=== PATIENT | female | born 1935 | race Hispanic/Latino ===

== ENCOUNTER 2016-08-12 01:33 | Emergency (ER) | payer MEDICARE ==
[2016-08-12 01:33] VITALS: PULSE 89; BMI 30.8
--- NOTE | 2016-08-12 01:44 | C.PDOC ---
History Of Present Illness Patient presents to ED with complaints of rib pain from falling from bed, REPLENISHMENT SPECIALIST daughter found patient on the floor. Patient denies loss of conscious, visual changes, fever, chills, nausea/vomiting and diarrhea. Patient states she had chemotherapy this morning for ovarian cancer. PMHx hip fracture. Time Seen by Provider: 08/12/16 01:43 History Per: Patient History/Exam Limitations: no limitations Onset/Duration Of Symptoms: Days Current Symptoms Are (Timing): Still Present Severity: Moderate Pain Scale Rating Of: 4 Location Of Pain/Discomfort: Diffuse Radiation Of Pain To:: None Quality Of Discomfort: Aching Associated Symptoms: denies: Fever, Chills, Nausea, Vomiting, Diarrhea Exacerbating Factors: Movement Alleviating Factors: None Last Bowel Movement: Yesterday Recent travel outside of the [place]: No Additional History Per: Patient Abnormal Vaginal Bleeding: No Past Medical History Reviewed: Historical Data, Nursing Documentation, Vital Signs Vital Signs: Last Vital Signs Temp 97.9 F 08/12/16 01:44 Pulse 111 H 08/12/16 01:44 Resp 16 08/12/16 01:44 BP 150/100 H 08/12/16 01:44 Pulse Ox 97 08/12/16 04:13 - Medical History PMH: Arthritis, Atrial Fibrillation (Patient on Pradaxa ), Cardia Arrhythmia, CHF, COPD, Diabetes, Gall Bladder Disease, HTN, Hypercholesterolemia, Peripheral Edema Surgical History: Cholecystectomy - [facility] Procedures DRAINAGE OF PERITONEAL CAVITY, PERCUTANEOUS APPROACH, DIAGN (11/13/15) FLUOROSCOPY OF LEFT HEART USING OTHER CONTRAST (01/08/16) FLUOROSCOPY OF MULTIPLE CORONARY ARTERIES USING OTH CONTRAST (01/08/16) MEASURE OF CARDIAC SAMPL & PRESSURE, L HEART, PERC APPROACH (01/08/16) PERCUTAN LIVER ASPIRAT (06/24/14) REPOSITION R UP FEMUR WITH INTRAMED FIX, OPEN APPROACH (05/19/16) TRANSFUSE NONAUT RED BLOOD CELLS IN PERIPH VEIN, PERC (01/08/16) ULTRASONOGRAPHY OF ABDOMEN (11/13/15) VENOUS CATHETERIZATION NEC (06/24/14) Family History: States: No Known Family Hx - Social History Hx Tobacco Use: No Hx Alcohol Use: No Hx Substance Use: No - Immunization History Hx Tetanus Toxoid Vaccination: Yes Hx Influenza Vaccination: Yes Hx Pneumococcal Vaccination: Yes Review Of Systems Constitutional: Negative for: Fever, Chills Eyes: Negative for: Pain, Vision Change Gastrointestinal: Negative for: Nausea, Vomiting Musculoskeletal: Negative for: Back Pain Skin: Negative for: Rash, Lesions Physical Exam - Physical Exam Appears: Non-toxic, No Acute Distress Skin: Warm, Dry Head: Atraumatic Eye(s): bilateral: Normal Inspection Oral Mucosa: Dry Neck: Supple Chest: Symmetrical, Tenderness (left ribs) Cardiovascular: Rhythm Regular Respiratory: No Rales, No Rhonchi, No Wheezing Gastrointestinal/Abdominal: Soft, Tenderness (mild), No Distention Extremity: Normal ROM, Tenderness (mild left hip) Extremity: Bilateral: Normal Color And Temperature Neurological/Psych: Oriented x3, Normal Speech, Normal Cognition Gait: Unsteady ED Course And Treatment - Laboratory Results Result Diagrams: 08/12/16 02:39 08/12/16 02:39 O2 Sat by Pulse Oximetry: 97 (Room air ) Pulse Ox Interpretation: Normal - CT Scan/US Head Other Rad Studies (CT/US): Read By Radiologist CT/US Interpretation: IMPRESSION: - No acute findings seen within the brain. - See above for remaining findings. Abd/Pelvis WO Other Rad Studies (CT/US): Read By Radiologist CT/US Interpretation: IMPRESSION: - Moderate to large amount abdominal and pelvic free fluid. This appears mildly. complex/loculated, however, it is not hyperdense to suggest acute hemoperitoneum. - Omental infiltration and peritoneal thickening. Given the history of ovarian cancer, the. findings are suspicious for peritoneal/omental metastases. - 5.8 cm round cystic mass in the anterior abdomen, also seen on a prior CT, mildly enlarged. in size. This has a fluid/hematocrit level within it, suspicious for internal hemorrhage. It could. represent a resolving hematoma or a cystic neoplastic mass. - Findings suspicious for mild pulmonary vascular congestion. Recommend clinical. correlation. - Diffuse subcutaneous edema/anasarca. Progress Note: spoke with family about the ct results. will take the patient home Reevaluation Time: 04:55 Reassessment Condition: Improved Medical Decision Making Medical Decision Making: Upon provider reevaluation patient is feeling better, is medically stable, and requires no further treatment in the ED at this time. Patient will be discharged home . . Counseling was provided and all questions were answered regarding diagnosis and need for follow up with dr spicer. There is agreement to discharge plan. Return if symptoms persist or worsen. Disposition Counseled Patient/Family Regarding: Studies Performed, Diagnosis, Need For Followup - Disposition Referrals: Ghazal Knight MD [Staff Provider] - Disposition: HOME/ ROUTINE Disposition Time: 01:43 Condition: FAIR Additional Instructions: Please return if symptoms recur Instructions: Contusion in Adults (DC), Ovarian Cancer (GEN) - Clinical Impression Clinical Impression: Metastasis - PA / CORN CUTTER / Resident Statement MD/DO has reviewed & agrees with the documentation as recorded. - Scribe Statement The provider has reviewed the documentation as recorded by the Scribshila Elizabeth All medical record entries made by the Sharyn were at my direction and personally dictated by me. I have reviewed the chart and agree that the record accurately reflects my personal performance of the history, physical exam, medical decision making, and the department course for this patient. I have also personally directed, reviewed, and agree with the discharge instructions and disposition.
[2016-08-12 01:48] VITALS: BP 150/100; TEMP 97.9
[2016-08-12 02:44] LABS: BASO # 0.1 K/uL (0.0-0.2); BASO % 0.3 % (0.0-2.0); HEMATOCRIT 32.9 % (34.0-47.0); LYMPH # 0.4 K/uL (1.0-4.3); LYMPH % 1.9 % (20.0-40.0); MEAN CELL VOLUME 85.3 fL (81.0-99.0); MEAN CORPUSCULAR HEMOGLOBIN 27.1 pg (27.0-31.0); MEAN CORPUSCULAR HGB CONC 31.8 g/dL (33.0-37.0); MEAN PLATELET VOLUME 8.9 fL (7.2-11.7); MONO # 0.6 K/uL (0.0-0.8); MONO % 2.4 % (0.0-10.0); NRBC % 0.1 % (0.0-2.0); PLATELET COUNT 573 K/uL (130-400); RED CELL DISTRIBUTION WIDTH 16.8 % (11.5-14.5); WHITE BLOOD COUNT 23.2 K/uL (4.8-10.8)
[2016-08-12 02:51] LABS: POTASSIUM 4.4 mmol/L (3.6-5.2)
[2016-08-12 02:53] LABS: ALB/GLOB RATIO 0.8 (1.0-2.1); BILIRUBIN,TOTAL 1.2 mg/dL (0.2-1.3); TOTAL PROTEIN 6.4 g/dL (6.3-8.3)
[2016-08-12 02:54] LABS: CALCIUM 7.6 mg/dl (8.6-10.4)
[2016-08-12 02:55] LABS: RBC URINE 1 /hpf (0-3); URINE BACTERIA MANY (<OCC); URINE BILIRUBIN NEGATIVE (NEGATIVE); URINE BLOOD 1+ (NEGATIVE); URINE COLOR Amber (YELLOW); URINE GLUCOSE (UA) NORMAL (Normal); URINE KETONE NEGATIVE (NEGATIVE); URINE LEUKOCYTE ESTERASE NEG Leu/uL (Negative); URINE PROTEIN NEGATIVE (NEGATIVE); URINE UROBILINOGEN NORMAL mg/dL (0.2-1.0); WBC URINE 2 /hpf (0-5)
[2016-08-12 02:57] LABS: NEUTROPHIL 94 % (50-75); TOTAL CELLS COUNTED 100
--- NOTE | 2016-08-12 03:30 | CT ---
EXAM: CT Head Without Intravenous Contrast CLINICAL HISTORY: 81 years old, female; Pain; Headache; Headache not specified; Additional info: R/O bleed TECHNIQUE: Axial computed tomography images of the head/brain without intravenous contrast. This CT exam was performed using one or more of the following dose reduction techniques: automated exposure control, adjustment of the mA and/or kV according to patient size, and/or use of iterative reconstruction technique. EXAM DATE/TIME: 08/12/2016 1:56 AM COMPARISON: No relevant prior studies available. FINDINGS: BRAIN: Focal area of low density is seen in the right cerebellum, which has an appearance most compatible with an old/chronic lacunar infarct. Physiologic right-sided basal ganglia calcification noted. Areas of hypodensity seen in the white matter bilaterally, nonspecific in appearance, but most likely representing chronic small vessel ischemic changes, in a patient of this age. Diffuse, age-related cortical atrophy and ventriculomegaly. No significant acute abnormality identified. No acute hemorrhage seen within the brain. No acute extra-axial fluid collections visualized. No evidence of significant mass effect within the brain. VENTRICLES: See above. BONES/JOINTS: No acute fractures or other acute bony abnormality noted. SOFT TISSUES: No acute abnormality of the visualized soft tissues is seen. VASCULATURE: Atherosclerotic calcification. SINUSES: Visualized paranasal sinuses appear clear, except for a small mucus retention cyst in the left sphenoid sinus. MASTOID AIR CELLS: Mastoid air cells appear clear. IMPRESSION: - No acute findings seen within the brain. - See above for remaining findings.
[2016-08-12 03:35] LABS: INR 1.5
--- NOTE | 2016-08-12 04:00 | CT ---
EXAM: CT Chest Without Intravenous Contrast CT Abdomen and Pelvis Without Intravenous Contrast CLINICAL HISTORY: 81 years old, female; Pain; Abdominal pain; Generalized; Chest pain; Type not specified; Additional info: Fall, chest pain , HX of ovarian ca TECHNIQUE: Axial computed tomography images of the chest, abdomen and pelvis without intravenous contrast. This CT exam was performed using one or more of the following dose reduction techniques: automated exposure control, adjustment of the mA and/or kV according to patient size, and/or use of iterative reconstruction technique. This CT exam was performed using one or more of the following dose reduction techniques: automated exposure control, adjustment of the mA and/or kV according to patient size, and/or use of iterative reconstruction technique. Coronal and sagittal reformatted images were created and reviewed. EXAM DATE/TIME: 08/12/2016 1:55 AM COMPARISON: Prior CT abdomen and pelvis of 06/17/2016 FINDINGS: CHEST: LUNGS: Findings suspicious for mild pulmonary vascular congestion. There is bilateral smooth interlobular septal thickening, mainly at the lung periphery, and there is subtle, bilateral diffuse groundglass consolidation. PLEURAL SPACE: No pneumothorax or significant pleural effusions seen. HEART: Heart appears moderately enlarged. Small pericardial effusion. THYROID: Right lobe of the thyroid gland is enlarged and heterogeneous in appearance. No definite focal nodules are seen. ABDOMEN: LIVER: Liver has a mildly nodular contour, suspicious for cirrhotic change. No evidence of liver laceration, allowing for unenhanced technique. GALLBLADDER AND BILE DUCTS: Cholecystectomy clips. PANCREAS: No evidence of peripancreatic fluid. SPLEEN: No evidence of splenic laceration, allowing for unenhanced technique. ADRENALS: No evidence of adrenal hemorrhage/hematoma. KIDNEYS AND URETERS: No evidence of perinephric hemorrhage. STOMACH AND BOWEL: Colonic diverticulosis, with no evidence of acute diverticulitis. No acute abnormality of the stomach or duodenum identified. No evidence of small bowel obstruction. APPENDIX: Appendix is seen, and is within normal limits in appearance. PELVIS: BLADDER: No acute abnormality of the bladder identified. REPRODUCTIVE:No acute abnormality of the reproductive organs is seen. No acute abnormality of the uterus identified. No evidence of large adnexal masses. CHEST, ABDOMEN and PELVIS: INTRAPERITONEAL SPACE: Abdominal and pelvic free fluid, moderate to large amount, a new finding. This appears complex/loculated but it does not appear hyperdense to suggest hemoperitoneum. There is abnormal, diffuse infiltrative soft tissue in the omentum, as well as mild diffuse peritoneal thickening. Again seen in the anterior abdomen, localized to the omentum, is a round, cystic mass measuring 5.8 cm, mildly enlarged in size compared to the prior exam. This is complex, demonstrating a fluid/hematocrit level within it. There is adjacent omental infiltration. No associated air. No evidence of free air. RETROPERITONEAL SPACE: No evidence of retroperitoneal hemorrhage. BONES/JOINTS: Metallic hardware in the right hip. Bony structures appear demineralized. No acute fractures are seen. SOFT TISSUES: Diffuse subcutaneous edema/anasarca. VASCULATURE: Diffuse atherosclerotic calcification of the aorta. Exam is nondiagnostic for aortic dissection and pulmonary emboli, secondary to unenhanced technique. No evidence of periaortic hemorrhage. LYMPH NODES: No evidence of diffuse lymphadenopathy. TUBES, LINES AND DEVICES: Mediport catheter in place, which terminates in the SVC. IMPRESSION: - Moderate to large amount abdominal and pelvic free fluid. This appears mildly complex/loculated, however, it is not hyperdense to suggest acute hemoperitoneum. - Omental infiltration and peritoneal thickening. Given the history of ovarian cancer, the findings are suspicious for peritoneal/omental metastases. - 5.8 cm round cystic mass in the anterior abdomen, also seen on a prior CT, mildly enlarged in size. This has a fluid/hematocrit level within it, suspicious for internal hemorrhage. It could represent a resolving hematoma or a cystic neoplastic mass. - Findings suspicious for mild pulmonary vascular congestion. Recommend clinical correlation. - Diffuse subcutaneous edema/anasarca. - Cardiomegaly, with a small pericardial effusion. - See above for remaining findings.
[2016-08-12 05:14] VITALS: PULSE 83; RESP 15; O2SAT 95
== END 2016-08-12 05:14 | disposition home or self-care (01) ==
LOC: C.ER 01:33
DX: C79.9 Secondary malignant neoplasm of unspecified site (principal); C56.9 Malignant neoplasm of unspecified ovary; I11.0 Hypertensive heart disease with heart failure; I50.9 Heart failure, unspecified; E11.9 Type 2 diabetes mellitus without complications; E78.00 Pure hypercholesterolemia, unspecified
CPT/HCPCS: 70450; 71250; 74176; 80053; 81001; 85025; 85610; 85730; 96374; 99284; J1885

== ENCOUNTER 2016-08-19 11:45 | Day surgery (SDC) | payer MEDICARE ==
[2016-08-18 14:02] VITALS: BMI 24.7
[2016-08-19 12:44] VITALS: RESP 20; TEMP 97.1
--- NOTE | 2016-08-19 13:36 | CP.SDSHP ---
Same Day Surgery H & P - History Proposed Procedure: US guided paracentesis Pre-Op Diagnosis: Ascites - Allergies Allergies: Allergies No Known Allergies Allergy (Verified 08/12/16 01:38) - Physical Exam Vital Signs: Vital Signs 08/19/16 12:24 Temperature 97.1 F L Pulse Rate 112 H Respiratory 20 Rate Blood Pressure 147/90 O2 Sat by Pulse 94 L Oximetry Mental Status: Alert & Oriented x3 Neuro: WNL Heart: WNL - Impression Impression: Pt with moderate ascites. Plan US guided paracentesis. Pt. Evaluated Today:Candidate for Anesthesia & Procedure: No Short Stay Discharge - Short Stay Discharge Admitting Diagnosis/Reason for Visit: MALIGNANT NEOPLASM OF UNSPECIFIED OVARY Disposition: HOME/ ROUTINE
--- NOTE | 2016-08-19 13:37 | PCM.SURG1 ---
Surgeon's Initial Post Op Note - Surgeon's Notes Surgeon: Justin Lopez MD Cigarette Tester: NONE Type of Anesthesia: Local Pre-Operative Diagnosis: Ascites Operative Findings: US showed a moderate amount of fluid. Post-Operative Diagnosis: Ascites Operation Performed: US guided paracentesis. Specimen/Specimens Removed: 2 liters of straw colored fluid Estimated Blood Loss: EBL {In ML}: 0 Blood Products Given: N/A Drains Used: No Drains Post-Op Condition: Fair Date of Surgery/Procedure: 08/19/16 Time of Surgery/Procedure: 13:25
[2016-08-19 14:21] VITALS: O2SAT 98
[2016-08-19 14:23] VITALS: BP 126/74; PULSE 126
--- NOTE | 2016-09-05 11:52 | US ---
Date of Procedure: 08/19/2016 PROCEDURE: Ultrasound-guided paracentesis, CPT 40384 Medications: 1% Lidocaine HISTORY: Ascites, abdominal pain, TECHNIQUE: Following informed consent , the patient was placed supine on the stretcher and the site was marked. A limited abdominal ultrasound was performed that showed a moderate amount of intra-abdominal fluid. Procedural time out was called and the Pt's abdomen was marked and prepped and draped in the usual sterile fashion. Ultrasound-guided large volume paracentesis performed. A total of 2.8 liters of straw colored fluid was removed without complication. IMPRESSION: Ultrasound-guided large volume paracentesis.
== END 2016-08-19 14:30 | disposition home or self-care (01) ==
LOC: C.SPRAD 11:45
PROVIDERS: ATTEND Radiology Vascular & Interventional Radiology
DX: C56.9 Malignant neoplasm of unspecified ovary (principal); R18.8 Other ascites

== ENCOUNTER 2016-09-05 17:45 | Inpatient (IN) | payer MEDICARE ==
[2016-09-05 17:50] VITALS: BMI 25.8
--- NOTE | 2016-09-05 17:57 | C.PDOC ---
Chief Complaint (Nursing): Weakness/Neurological Deficit Past Medical History - [facility] Procedures CORONAR ARTERIOGR-2 CATH (03/24/06) LEFT HEART CARDIAC CATH (03/24/06) LT HEART ANGIOCARDIOGRAM (03/24/06)
[2016-09-05] MEDS ORDERED: Sodium Chloride 0.9% 1,000 ML IV ONE (18:31)
[2016-09-05 18:56] LABS: BASO # 0.1 K/uL (0.0-0.2); BASO % 0.4 % (0.0-2.0); HEMATOCRIT 35.8 % (34.0-47.0); LYMPH # 0.6 K/uL (1.0-4.3); LYMPH % 2.5 % (20.0-40.0); MEAN CELL VOLUME 90.4 fL (81.0-99.0); MEAN CORPUSCULAR HEMOGLOBIN 28.8 pg (27.0-31.0); MEAN CORPUSCULAR HGB CONC 31.9 g/dL (33.0-37.0); MEAN PLATELET VOLUME 10.3 fL (7.2-11.7); MONO # 1.2 K/uL (0.0-0.8); MONO % 5.4 % (0.0-10.0); NRBC % 0.1 % (0.0-2.0); PLATELET COUNT 192 K/uL (130-400); RED CELL DISTRIBUTION WIDTH 26.4 % (11.5-14.5)
[2016-09-05 19:43] LABS: POTASSIUM 4.6 mmol/L (3.6-5.2)
[2016-09-05 19:45] LABS: BILIRUBIN,TOTAL 1.4 mg/dL (0.2-1.3)
[2016-09-05 19:46] LABS: ALB/GLOB RATIO 1.1 (1.0-2.1); CALCIUM 7.9 mg/dl (8.6-10.4); TOTAL PROTEIN 5.8 g/dL (6.3-8.3)
--- NOTE | 2016-09-05 20:03 | C.PDOC ---
History Of Present Illness 81 y/o female brought in by ambulance for decreased mental status over the last 5 days. Patient was reportedly started on home IV fluids and Cipro 5 days ago for supposed UTI. Patient is reportedly less awake, alert, and oriented today. Transiently known to be in rapid afib in 130s - 160s, resolved with Cardizem. Denies fever, chills, nausea, vomiting, chest pain, or SOB. Time Seen by Provider: 09/05/16 18:21 Chief Complaint (Nursing): Weakness/Neurological Deficit History Per: EMS History/Exam Limitations: None Onset/Duration Of Symptoms: Days Current Symptoms Are (Timing): Still Present Usual Baseline: Alert Oriented Exacerbating Factor(s): Unknown Recent travel outside of the [place]: No Past Medical History Reviewed: Historical Data, Nursing Documentation, Vital Signs Vital Signs: Last Vital Signs Temp 97.1 F L 09/05/16 17:50 Pulse 123 H 09/05/16 19:30 Resp 16 09/05/16 19:30 BP 121/73 09/05/16 19:30 Pulse Ox 96 09/05/16 22:48 - Medical History PMH: HTN - [facility] Procedures CORONAR ARTERIOGR-2 CATH (03/24/06) LEFT HEART CARDIAC CATH (03/24/06) LT HEART ANGIOCARDIOGRAM (03/24/06) Family History: States: Unknown Family Hx - Social History Hx Alcohol Use: No Hx Substance Use: No Review Of Systems Except As Marked, All Systems Reviewed And Found Negative. Constitutional: Negative for: Fever, Chills Cardiovascular: Negative for: Chest Pain, Palpitations Respiratory: Negative for: Cough, Shortness of Breath Gastrointestinal: Negative for: Nausea, Vomiting Skin: Negative for: Rash Neurological: Positive for: Altered Mental Status Physical Exam - Physical Exam Appears: Non-toxic, No Acute Distress, Other (somnolent) Skin: Warm, Dry, Pale Head: Atraumatic, Normacephalic Chest: Symmetrical Cardiovascular: Rhythm Regular (irregularly regular ) Respiratory: Normal Breath Sounds, No Rales, No Rhonchi, No Wheezing Gastrointestinal/Abdominal: Soft, No Tenderness, No Guarding, No Rebound Back: Normal Inspection Extremity: Normal ROM, Other (4/4 pitting edema, bilateral lower extremities) Neurological/Psych: Other (not answering questions, somnolent ) ED Course And Treatment - Laboratory Results Result Diagrams: 09/05/16 18:51 09/05/16 19:33 Lab Interpretation: Abnormal (UA neg, trop 0.17, bnp 28,000) ECG: Interpreted By Me ECG Rhythm: Atrial Fibrillation ECG Interpretation: No Changes From Prior, Abnormal Rate From EC O2 Sat by Pulse Oximetry: 96 (RA) Pulse Ox Interpretation: Normal - Radiology CXR: Interpreted by Me CXR Interpretation: Yes: Other (+ mild/mod CHF) Progress Note: CT Head, EKG, CxR, bloodwork and IVFs ordered, dig IV Reevaluation Time: 22:46 Reassessment Condition: Improved - Physician Consult Information Outcome Of Conversation: 2100: d/w Dr. Vane Busby- ok to Tele Obs. 2144: d/w Dr. Driver- ICU- ok to Tele Obs if rate controlled with dig and IVF's Critical Care Time - Critical Care Note Total Time (in mins): 90 Documented critical care: time excludes all time spent performing seperately billable procedures. Medical Decision Making Medical Decision Makin: d/w ICU, Dr. Driver recommends start Dig and gentle fluid bolus Leukocytosis more likely related to pt's recent Chemo 2 wks ago for Ovarian CA Belly benign- not re-imaged despite leukocytosis Broad spectrum ABX for ? underlying infection/UTI considering poor effect on Cipro IV x 5 days. DNR Status should be better defined. Disposition Doctor Will See Patient In The: Hospital Counseled Patient/Family Regarding: Studies Performed, Diagnosis - Disposition Disposition: HOSPITALIZED Disposition Time: 22:13 Condition: FAIR Instructions: Weakness (ED) - Clinical Impression Clinical Impression: Weakness, CHF (congestive heart failure), Troponin I above reference range, Rapid atrial fibrillation - Scribe Statement The provider has reviewed the documentation as recorded by the Sharyn Rdz Provider Scribe Attestation: All medical record entries made by the Sharyn were at my direction and personally dictated by me. I have reviewed the chart and agree that the record accurately reflects my personal performance of the history, physical exam, medical decision making, and the department course for this patient. I have also personally directed, reviewed, and agree with the discharge instructions and disposition.
[2016-09-05 20:10] LABS: TROPONIN I 0.17 ng/mL (0.00-0.120)
[2016-09-05 20:12] LABS: VENOUS BLOOD GAS BASE EXCESS -3.1 mmol/L (0.0-2.0); VENOUS BLOOD GAS PCO2 45 mmHg (40-60); VENOUS BLOOD PH 7.32 (7.32-7.43)
[2016-09-05 20:23] LABS: INR 2.2
--- NOTE | 2016-09-05 21:46 | CT ---
EXAM: CT Head Without Intravenous Contrast CLINICAL HISTORY: 81 years old, female; Signs and symptoms and condition or disease; Other: Ovarian cancer; Altered mental status/memory loss; Confusion or disorientation; Additional info: Change ms, ovarian ca TECHNIQUE: Axial computed tomography images of the head/brain without intravenous contrast. This CT exam was performed using one or more of the following dose reduction techniques: automated exposure control, adjustment of the mA and/or kV according to patient size, and/or use of iterative reconstruction technique. COMPARISON: No relevant prior studies available. FINDINGS: Brain: [id number] atrophy. No intracranial hemorrhage. No mass. Minimal decreased attenuation within periventricular white matter. No definite edema. Ventricles: No hydrocephalus. Bones/joints: No acute fracture. Soft tissues: Unremarkable. Vasculature: Few foci of air about cavernous sinus, nonspecific but possibly iatrogenic. Sinuses: No acute sinusitis. Mastoid air cells: No mastoid effusion. Orbits: Unremarkable as visualized. IMPRESSION: 1. Nonspecific white matter changes. Acute infarction may be CT occult within first 24 hours. If a focal deficit persists, consider followup CT or MRI for further evaluation. 2. Incidental/non-acute findings are described above.
[2016-09-05] MEDS ORDERED: Digoxin 500 mcg/2ml (0.5 mg/2ml) Inj IVP ONE (22:08)
[2016-09-05] MEDS ORDERED: cefTRIAXone IV 1 gm in Dextros 50 ML IV ONE (22:09)
[2016-09-05] MEDS ORDERED: Sodium Chloride 0.9% 500 ML IV ONE ×2 (22:10→22:48)
[2016-09-05 22:20] LABS: RBC URINE 1 /hpf (0-3); URINE BACTERIA RARE (<OCC); URINE BILIRUBIN NEGATIVE (NEGATIVE); URINE BLOOD NEGATIVE (NEGATIVE); URINE COLOR Yellow (YELLOW); URINE GLUCOSE (UA) NORMAL (Normal); URINE KETONE NEGATIVE (NEGATIVE); URINE LEUKOCYTE ESTERASE NEG Leu/uL (Negative); URINE PROTEIN NEGATIVE (NEGATIVE); URINE UROBILINOGEN NORMAL mg/dL (0.2-1.0); WBC URINE 1 /hpf (0-5)
--- NOTE | 2016-09-05 22:35 | CP.PCM.CON ---
History of Present Illness - History of Present Illness History of Present Illness: CCM 81 yo female with hx Uterine Ca on chemo until 2 weeks ago / A-fib /CHF /HTN / Recent UTI on Cipro brought b/o altered ms x 5 days per family. Pt has been weak. Still taking some PO. Treated with cardizem for rapid A-fib by EMS. Pt denied complaint to me. No pain /sob /n /v /d /fever /cough /urinary sx. Family reports prior cath with no coronary obstruction. ROS- as noted All- NKDASocial- no tob/ etoh/ drugs Meds- reviwed FH-Unknown PE T-97.1 P-123 R-16 BP121/73 Awake, responsive, answers appropriatelynad Neck-supple Lungs- bilat bs heart-irreg irreg Abd-bs+, soft, nontender Ext- bipedal edema Labs, EKG, [id number] A&P Encephalopathy- ?multifactorial-improving [facility] A-fib- Chronic Hx UTI CMP Leukocytosis Uterine Ca Hx HTN Rate control with dig check UA/ cultures Ab pending cultures cautious hydration f/u CE Maintain optimal lytes cont AC for A-fib telemetry monitoring re-consult prn address advance directives d/w ED staff Past Patient History - Past Social History Smoking Status: Unknown If Ever Smoked - CARDIAC Hx Hypertension: Yes - HEMATOLOGICAL/ONCOLOGICAL Hx Cancer: Yes (ovarian ca) - GENITOURINARY/GYNECOLOGICAL Hx Urinary Tract Infection: Yes - PSYCHIATRIC Hx Substance Use: No - ANESTHESIA Hx Anesthesia: Yes Meds Allergies/Adverse Reactions: Allergies Allergy/AdvReac Type Severity Reaction Status Date / Time No Known Allergies Allergy Unverified 09/05/16 17:50 - Medications Medications: Current Medications Ceftriaxone Sodium (Rocephin Iv 1 Gm Duplex) 50 mls @ 200 mls/hr IV ONCE ONE Stop: 09/05/16 22:23 Sodium Chloride (Sodium Chloride 0.9%) 500 mls @ 250 mls/hr IV .Q2H ONE Stop: 09/06/16 00:09 Results - Vital Signs Recent Vital Signs: Last Vital Signs Temp 97.1 F L 09/05/16 17:50 Pulse 123 H 09/05/16 19:30 Resp 16 09/05/16 19:30 BP 121/73 09/05/16 19:30 Pulse Ox 96 09/05/16 22:14 - Labs Result Diagrams: 09/05/16 18:51 09/05/16 19:33 Labs: Laboratory Results - last 24 hr 09/05/16 09/05/16 09/05/16 18:51 18:51 19:33 WBC 22.0 H RBC 3.96 Hgb 11.4 Hct 35.8 MCV 90.4 MCH 28.8 MCHC 31.9 L RDW 26.4 H Plt Count 192 MPV 10.3 Neut % (Auto) 91.7 H Lymph % (Auto) 2.5 L [place] % (Auto) 5.4 Eos % (Auto) 0.0 Baso % (Auto) 0.4 Neut # 20.2 H Lymph # 0.6 L [place] # 1.2 H Eos # 0.0 Baso # 0.1 PT INR APTT pO2 VBG pH VBG pCO2 VBG HCO3 VBG Total CO2 VBG O2 Sat (Calc) VBG Base Excess VBG Potassium Glucose Lactate Sodium 132 Potassium 4.6 Chloride 98 Carbon Dioxide 22 Anion Gap 17 BUN 67 H Creatinine 1.6 H Est GFR ( Amer) 37 Est GFR (Non-Af Amer) 31 Random Glucose 117 H Hemoglobin A1c 6.6 H Calcium 7.9 L Total Bilirubin 1.4 H AST 286 H ALT 445 H Alkaline Phosphatase 49 Troponin I 0.1700 H* NT-Pro-B Natriuret Pep 29416 H Total Protein 5.8 L Albumin 3.0 L Globulin 2.8 Albumin/Globulin Ratio 1.1 Triglycerides 120 Cholesterol 123 LDL Cholesterol Direct 54 HDL Cholesterol 34 Venous Blood Potassium 09/05/16 09/05/16 20:04 20:08 WBC RBC Hgb Hct MCV MCH MCHC RDW Plt Count MPV Neut % (Auto) Lymph % (Auto) [place] % (Auto) Eos % (Auto) Baso % (Auto) Neut # Lymph # [place] # Eos # Baso # PT 25.7 H INR 2.2 APTT 56 H pO2 31 VBG pH 7.32 VBG pCO2 45 VBG HCO3 21.3 VBG Total CO2 24.6 VBG O2 Sat (Calc) 51.3 VBG Base Excess -3.1 L VBG Potassium 4.7 Glucose 122 H Lactate 2.1 Sodium 137.0 Potassium Chloride 105.0 Carbon Dioxide Anion Gap BUN Creatinine Est GFR ( Amer) Est GFR (Non-Af Amer) Random Glucose Hemoglobin A1c Calcium Total Bilirubin AST ALT Alkaline Phosphatase Troponin I NT-Pro-B Natriuret Pep Total Protein Albumin Globulin Albumin/Globulin Ratio Triglycerides Cholesterol LDL Cholesterol Direct HDL Cholesterol Venous Blood Potassium 4.7 Assessment & Plan (1) Rapid atrial fibrillation Status: Acute (2) CHF (congestive heart failure) Status: Chronic (3) Troponin I above reference range Status: Acute (4) UTI (urinary tract infection) Status: Suspected (5) Uterine cancer Status: Chronic
[2016-09-05] MEDS ORDERED: cefTRIAXone IV 1 gm in Dextros 50 ML IVPB ONE (22:48)
[2016-09-05] MEDS ORDERED: Digoxin 500 mcg/2ml (0.5 mg/2ml) Inj ONE (22:48)
[2016-09-05 23:41] LABS: NEUTROPHIL 88 % (50-75); TOTAL CELLS COUNTED 100
[2016-09-05 23:42] LABS: LARGE PLATELETS PRESENT; SMUDGE CELLS PRESENT; SPHEROCYTES SLIGHT
[2016-09-06] MEDS ORDERED: Digoxin 500 mcg/2ml (0.5 mg/2ml) Inj IVP STA (00:06)
[2016-09-06] MEDS ORDERED: Digoxin 500 mcg/2ml (0.5 mg/2ml) Inj ONE (00:18)
[2016-09-06 00:21] VITALS: PULSE 153
[2016-09-06] MEDS ORDERED: Dextrose 5%/0.45% NS 1,000 ML IV ONE (01:13)
[2016-09-06] MEDS: Dextrose 5%/0.45% NS 1,000 ML IV SCH (01:22)
--- NOTE | 2016-09-06 08:41 | RAD ---
HISTORY: change MS COMPARISON: No prior. FINDINGS: LUNGS: Left chest wall port with tip extending to the confluence of the right brachiocephalic/ SVC junction. Mild venous congestion. Trace right pleural effusion. PLEURA: As above. CARDIOVASCULAR: Cardiomegaly. Calcification at the aortic knob. OSSEOUS STRUCTURES: No significant abnormalities. VISUALIZED UPPER ABDOMEN: Normal. OTHER FINDINGS: None. IMPRESSION: Left chest wall port with tip extending to the confluence of the right brachiocephalic/ SVC junction. Mild venous congestion. Trace right pleural effusion.
[2016-09-06] MEDS: Oxycodone/Acetaminophen 5/325 mg Tab PO PRN ×4 (08:59→18:59)
[2016-09-06 09:20] LABS: BASO % 0.2 % (0.0-2.0); HEMATOCRIT 35.1 % (34.0-47.0); LYMPH # 0.6 K/uL (1.0-4.3); LYMPH % 2.9 % (20.0-40.0); MEAN CELL VOLUME 90.5 fL (81.0-99.0); MEAN CORPUSCULAR HEMOGLOBIN 28.4 pg (27.0-31.0); MEAN CORPUSCULAR HGB CONC 31.3 g/dL (33.0-37.0); MEAN PLATELET VOLUME 9.9 fL (7.2-11.7); MONO # 1.2 K/uL (0.0-0.8); MONO % 5.7 % (0.0-10.0); NRBC % 0.1 % (0.0-2.0); PLATELET COUNT 170 K/uL (130-400); RED CELL DISTRIBUTION WIDTH 25.6 % (11.5-14.5); WHITE BLOOD COUNT 21.5 K/uL (4.8-10.8)
[2016-09-06 09:35] LABS: POTASSIUM 4.2 mmol/L (3.6-5.2)
[2016-09-06 09:37] LABS: ALB/GLOB RATIO 0.9 (1.0-2.1); BILIRUBIN,TOTAL 1.2 mg/dL (0.2-1.3); CALCIUM 7.7 mg/dl (8.6-10.4); TOTAL PROTEIN 5.7 g/dL (6.3-8.3)
[2016-09-06 09:53] LABS: NEUTROPHIL 94 % (50-75); TOTAL CELLS COUNTED 100
--- NOTE | 2016-09-06 10:23 | CARD ---
APPROVED REPORT EKG Measurement Heart [id number] <Conclusion> Atrial fibrillation with rapid ventricular response Left axis deviation ST & T wave abnormality, consider inferolateral ischemia Abnormal ECG
--- NOTE | 2016-09-06 11:59 | CP.PCM.HP ---
History of Present Illness - History of Present Illness History of Present Illness: This is an 81 y/o female with kown history of ovarian Ca, HTN, diabetes mellitus and paroxysmal atrial fibrillation who was brought to the ER by the family because of severe weakness, suspected low grade fever, confusion and disorientation. According to the daughter, the patient just gradually deteriorated this past week and refused to eat and became uncooperative. She was noted to sleep most of the time, refusing to eat and drink within the last few days and became very weak, confused and disoriented. She has history of on and off UTI. She was given Cipro recently which reportedly did not help her condition hence she was brought to the ER. In the ER she was found to be in atrial fib with rapid ventricular response, associated with markedly elevated WBC count, significant azotemia, abnormal LFT' s, confusion and disorientation. Present on Admission - Present on Admission Any Indicators Present on Admission: No Review of Systems - Review of Systems Systems not reviewed;Unavailable: Altered Mental Status, Uncooperative - Constitutional Constitutional: Anorexia, Daytime Sleepiness, Lethargy, Weight Loss, Weakness - EENT Eyes: As Per HPI Ears: As Per HPI Nose/Mouth/Throat: As Per HPI - Cardiovascular Cardiovascular: Dyspnea on Exertion, Irregular Heart Rhythm, Rapid Heart Rate, Syncope - Respiratory Respiratory: Dyspnea on Exertion - Gastrointestinal Gastrointestinal: Abdominal Pain, Constipation - Musculoskeletal Musculoskeletal: Back Pain, Tingling - Neurological Neurological: Confusion, Lack of Coordination, Syncope, Weakness Past Patient History - Infectious Disease Hx of Infectious Diseases: MRSA, VRE - Past Medical History & Family History Past Medical History?: Yes - Past Social History Smoking Status: Never Smoked Chewing Tobacco Use: No Cigar Use: No Alcohol: None Drugs: Denies Home Situation {Lives}: With Family - CARDIAC Hx Cardiac Disorders: Yes Hx Atrial Fibrillation: Yes (paroxysmal) Hx Hypertension: Yes Hx Peripheral Edema: Yes - PULMONARY Hx Respiratory Disorders: No - NEUROLOGICAL Hx Neurological Disorder: No Hx Syncope: Yes - ENDOCRINE/METABOLIC Hx Diabetes Mellitus Type 2: Yes - HEMATOLOGICAL/ONCOLOGICAL Hx Cancer: Yes (ovarian ca) - MUSCULOSKELETAL/RHEUMATOLOGICAL Hx Falls: Yes - GASTROINTESTINAL Hx Gastrointestinal Disorders: Yes Other/Comment: History of ascites. S/P abdominal paracentesis a fe weeks ago and obtained about 2 L of fluid. - GENITOURINARY/GYNECOLOGICAL Hx Genitourinary Disorders: Yes Hx Ovarian Cancer: Yes Hx Urinary Tract Infection: Yes - PSYCHIATRIC Hx Substance Use: No - SURGICAL HISTORY Hx Surgeries: Yes Hx Cardiac Catheterization: Yes (Non-obstructive CAD, Good LV function) - ANESTHESIA Hx Anesthesia: Yes Hx Anesthesia Reactions: No Hx Malignant Hyperthermia: No Has any member of the family had a problem w/ anesthesia?: No Meds Allergies/Adverse Reactions: Allergies Allergy/AdvReac Type Severity Reaction Status Date / Time No Known Allergies Allergy Unverified 09/05/16 17:50 Physical Exam - Constitutional Appears: No Acute Distress, Confused, Chronically Ill - Eye Exam Eye Exam: Normal appearance - ENT Exam ENT Exam: Mucous Membranes Moist - Neck Exam Neck exam: Positive for: Normal Inspection - Respiratory Exam Respiratory Exam: Clear to Auscultation Bilateral, NORMAL BREATHING PATTERN - Cardiovascular Exam Cardiovascular Exam: Tachycardia, Irregular Rhythm, +S1, +S2 - GI/Abdominal Exam GI & Abdominal Exam: Normal Bowel Sounds, Soft - Rectal Exam Rectal Exam: Deferred - Extremities Exam Extremities exam: Positive for: normal inspection - Back Exam Back exam: NORMAL INSPECTION - Neurological Exam Neurological exam: Alert, CN II-XII Intact, Oriented x3 - Expanded Psychiatric Exam Expanded Focused psych exam: Restlessness - Skin Skin Exam: Dry, Intact, Normal Color, Warm Results - Vital Signs Recent Vital Signs: Last Vital Signs Temp 97.6 F 09/06/16 02:30 Pulse 105 H 09/06/16 06:00 Resp 20 09/06/16 02:30 BP 161/86 H 09/06/16 06:00 Pulse Ox 99 09/06/16 02:30 - Labs Result Diagrams: 09/07/16 06:25 09/07/16 06:25 Labs: Laboratory Results - last 24 hr 09/06/16 09/06/16 09/06/16 02:48 06:34 09:15 WBC 21.5 H RBC 3.87 Hgb 11.0 Hct 35.1 MCV 90.5 MCH 28.4 MCHC 31.3 L RDW 25.6 H Plt Count 170 MPV 9.9 Neut % (Auto) 91.2 H Lymph % (Auto) 2.9 L [place] % (Auto) 5.7 Eos % (Auto) 0.0 Baso % (Auto) 0.2 Neut # 19.6 H Lymph # 0.6 L [place] # 1.2 H Eos # 0.0 Baso # 0.0 Neutrophils % (Manual) 94 H Lymphocytes % (Manual) 1 L Monocytes % (Manual) 5 Platelet Estimate Normal Hypochromasia (manual) Slight Poikilocytosis (manual Slight Anisocytosis (manual) Slight Microcytosis (manual) Slight Macrocytosis (manual) Slight Tear Drop Cells Slight Ovalocytes Slight [place] Cells Slight Sodium Potassium Chloride Carbon Dioxide Anion Gap BUN Creatinine Est GFR ( Amer) Est GFR (Non-Af Amer) POC Glucose (mg/dL) 119 H Random Glucose Calcium Total Bilirubin AST ALT Alkaline Phosphatase Total Creatine Kinase 26 L CK-MB (Mass) 2.07 Troponin I, Quant 0.1610 H* Total Protein Albumin Globulin Albumin/Globulin Ratio 09/06/16 09/06/16 09/06/16 09:15 09:15 11:14 WBC RBC Hgb Hct MCV MCH MCHC RDW Plt Count MPV Neut % (Auto) Lymph % (Auto) [place] % (Auto) Eos % (Auto) Baso % (Auto) Neut # Lymph # [place] # Eos # Baso # Neutrophils % (Manual) Lymphocytes % (Manual) Monocytes % (Manual) Platelet Estimate Hypochromasia (manual) Poikilocytosis (manual Anisocytosis (manual) Microcytosis (manual) Macrocytosis (manual) Tear Drop Cells Ovalocytes [place] Cells Sodium 133 Potassium 4.2 Chloride 100 Carbon Dioxide 24 Anion Gap 13 BUN 63 H Creatinine 1.3 H Est GFR ( Amer) 48 Est GFR (Non-Af Amer) 39 POC Glucose (mg/dL) 119 H Random Glucose 108 H Calcium 7.7 L Total Bilirubin 1.2 AST 161 H D ALT 366 H Alkaline Phosphatase 57 Total Creatine Kinase 28 L CK-MB (Mass) 2.66 Troponin I, Quant 0.1940 H* Total Protein 5.7 L Albumin 2.7 L Globulin 2.9 Albumin/Globulin Ratio 0.9 L Assessment & Plan (1) Rapid atrial fibrillation Status: Acute Priority: High Comment: On Cardizem drip and started on po Cardizem to hopefullymantain rate (2) Acute metabolic encephalopathy Status: Acute Priority: High Comment: Patient confused and disoriented. CT Scan of the Head noted. (3) Elevated WBC count Status: Acute Priority: High Comment: r/o sepsis. Patient has history of frequent UTI and was recently given Cipro but reportedly did not seem to help her condition. Will get ID consultation. (4) Acute prerenal azotemia Status: Acute Priority: High Comment: patient on cautious hydration and monitoring of I/O and BUN/creat (5) Ovarian cancer Status: Chronic Priority: High Comment: Will get Oncology consultation Decision To Admit - Pt Status Changed To: Hospital Disposition Of: Inpatient - Admit Certification Admit to Inpatient:: After my assessment, the patient will require hospitalization for at least two midnights. This is because of the severity of symptoms shown, intensity of services needed, and/or the medical risk in this patient being treated as an outpatient. - InPatient: Physician Admission Certification:: After my assessment, the patient will require hospitalization for at least two midnights. This is because of the severity of symptoms shown, intensity of services needed, and/or the medical risk in this patient being treated as an outpatient - . Bed Request Type: Telemetry Admitting Physician: Ghazal Knight
[2016-09-06] MEDS: diltiaZEM 240 mg/24 Hours CD Cap PO SCH (14:09)
[2016-09-07 06:37] LABS: BASO % 0.1 % (0.0-2.0); EOS % 0.2 % (0.0-4.0); HEMATOCRIT 33.3 % (34.0-47.0); LYMPH # 0.3 K/uL (1.0-4.3); LYMPH % 1.9 % (20.0-40.0); MEAN CELL VOLUME 90.7 fL (81.0-99.0); MEAN CORPUSCULAR HEMOGLOBIN 28.5 pg (27.0-31.0); MEAN CORPUSCULAR HGB CONC 31.4 g/dL (33.0-37.0); MEAN PLATELET VOLUME 9.9 fL (7.2-11.7); MONO # 1.1 K/uL (0.0-0.8); MONO % 6.1 % (0.0-10.0); NRBC % 0.1 % (0.0-2.0); PLATELET COUNT 159 K/uL (130-400); RED CELL DISTRIBUTION WIDTH 26.9 % (11.5-14.5); WHITE BLOOD COUNT 17.3 K/uL (4.8-10.8)
[2016-09-07 07:18] LABS: POTASSIUM 3.7 mmol/L (3.6-5.2)
[2016-09-07 07:20] LABS: ALB/GLOB RATIO 0.8 (1.0-2.1); TOTAL PROTEIN 4.9 g/dL (6.3-8.3)
[2016-09-07 07:21] LABS: CALCIUM 7.9 mg/dl (8.6-10.4)
[2016-09-07 08:32] LABS: NEUTROPHIL 90 % (50-75); TOTAL CELLS COUNTED 100
[2016-09-07] MEDS: Oxycodone/Acetaminophen 5/325 mg Tab PO PRN ×2 (09:21→19:32)
[2016-09-07] MEDS: diltiaZEM 240 mg/24 Hours CD Cap PO SCH (09:22)
--- NOTE | 2016-09-07 16:04 | CP.PCM.CON ---
History of Present Illness - History of Present Illness History of Present Illness: 81 y/o female with kown history of ovarian Ca, HTN, diabetes mellitus and paroxysmal atrial fibrillation who was brought to the ER by the family because of severe weakness, suspected low grade fever, confusion and disorientation. She has history of on and off UTI. She was given Cipro recently which reportedly did not help her condition hence she was brought to the ER. 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 Review of Systems - Review of Systems Systems not reviewed;Unavailable: Altered Mental Status - Constitutional Constitutional: As Per HPI - EENT Eyes: absent: As Per HPI, Blind Spots, Blurred Vision, Change in Vision, Decreased Night Vision, Diplopia, Discharge, Dry Eye, Exophthalmos, Floaters, Irritation, Itchy Eyes, Loss of Peripheral Vision, Pain, Photophobia, Requires Corrective Lenses, Sees Flashes, Spots in Vision, Tunnel Vision, Other Visual Disturbances, Loss of Vision, Other Ears: absent: As Per HPI, Decreased Hearing, Ear Discharge, Ear Pain, Tinnitus, Abnormal Hearing, Disequilibrium, Dizziness, Other Nose/Mouth/Throat: absent: As Per HPI, Epistaxis, Nasal Congestion, Nasal Discharge, Nasal Obstruction, Nasal Trauma, Nose Pain, Post Nasal Drip, Sinus Pain, Sinus Pressure, Bleeding Gums, Change in Voice, Dental Pain, Dry Mouth, Dysphagia, Halitosis, Hoarsness, Lip Swelling, Mouth Lesions, Mouth Pain, Odynophagia, Sore Throat, Throat Swelling, Tongue Swelling, Facial Pain, Neck Pain, Neck Mass, Other - Breasts Breasts: absent: As Per HPI, Change in Shape, Mass, Pain, Nipple Discharge, Nipple Inversion, Skin Changes, Swelling, Other - Cardiovascular Cardiovascular: absent: As Per HPI, Acrocyanosis, Chest Pain, Chest Pain at Rest , Chest Pain with Activity, Claudication, Diaphoresis, Dyspnea, Dyspnea on Exertion, Edema, Irregular Heart Rhythm, Pain Radiating to Arm/Neck/Jaw, Leg Edema, Leg Ulcers, Lightheadedness, Orthopnea, Palpitations, Paroxysmal Nocturnal Dyspnea, Pedal Edema, Radiating Pain, Rapid Heart Rate, Slow Heart Rate, Syncope, Other - Respiratory Respiratory: absent: As Per HPI, Cough, Dyspnea, Hemoptysis, Dyspnea on Exertion , Wheezing, Snoring, Stridor, Pain on Inspiration, Chest Congestion, Excessive Mucous Production, Change in Mucous Color, Pain with Coughing, Other - Gastrointestinal Gastrointestinal: absent: As Per HPI, Abdominal Pain, Belching, Bloating, Change in Bowel Habits, Change in Stool Character, Coffee Ground Emesis, Constipation, Cramping, Diarrhea, Dyspepsia, Dysphagia, Early Satiety, Excessive Flatus, Fecal Incontinence, Heartburn, Hematemesis, Hematochezia, Loose Stools, Melena, Nausea, Odynophagia, Temesmus, Vomiting, Other - Genitourinary Genitourinary: absent: As Per HPI, Change in Urinary Stream, Difficulty Urinating, Dysuria, Flank Pain, Hematuria, Pyuria, Nocturia, Urinary Incontinence, Urinary Frequency, Urinary Hesitance, Urinary Urgency, Voiding Freq/Small Amts, Freq UTI, Hx Renal/Bladder Calculi, Hx /Renal Surgery, Bladder Distension, Other - Reproductive: Female Reproductive:Female: absent: As Per HPI, Amenorrhea, Amenorrhea/ Control, Currently Menstual, Cycle <21 Days, Cycle >35 Days, Cycle Variable, Menses 1-7 Days, Menses >/= 8 Days, Menses Variable, Cycle > 4 Weeks Between, No Menses for 6 Months, Heavy Menses, Light Menses, Normal Menses, Spotting Between Cycles , S/P Hysterectomy, Menopausal, Post Menopausal, Premenarche, Abnormal Vaginal Bleeding, Dysmenorrhea, Dyspareunia, Genital Lesions, Genital Pruritis, Pelvic Pain, Prolapse Symptoms, Sexual Dysfunction, Vaginal Discharge, Vaginal Dryness , Vaginal Odor, Vaginal Pruritis, Other - Menstruation Menstruation: absent: As Per HPI, Amenorrhea, Amenorrhea/ Control, Currently Menstual, Cycle <21 Days, Cycle >35 Days, Cycle Variable, Menses 1-7 Days, Menses >/= 8 Days, Menses Variable, Cycle > 4 Weeks Between, No Menses for 6 Months, Heavy Menses, Light Menses, Normal Menses, Spotting Between Cycles , S/P Hysterectomy, Menopausal, Post Menopausal, Premenarche, Abnormal Vaginal Bleeding, Dysmenorrhea, Other - Musculoskeletal Musculoskeletal: absent: As Per HPI, Abnormal Gait, Arthralgias, Atrophy, Back Pain, Deformity, Joint Swelling, Limited Range of Motion, Loss of Height, Muscle Cramps, Muscle Weakness, Myalgias, Neck Pain, Numbness, Radiating Pain into Limb, Stiffness, Tingling, Other - Integumentary Integumentary: absent: As Per HPI, Acne, Alopecia, Bleeding Lesions, Change in Hair, Change in Nails, Change in Pigmentation, Changing Lesions, Dry Skin, Erythema, Furuncle, Hirsutism, Lesions, New Lesions, Non-Healing Lesions, Photosensitivity, Pruritus, Rash, Skin Pain, Skin Ulcer, Sores, Striae, Swelling , Unusual Bruising, Wounds, Jaundice, Other - Neurological Neurological: absent: As Per HPI, Abnormal Gait, Abnormal Hearing, Abnormal Movements, Abnormal Speech, Behavioral Changes, Burning Sensations, Confusion, Convulsions, Disequilibrium, Dizziness, Numbness, Focal Weakness, Frequent Falls , Headaches, Lack of Coordination, Loss of Vision, Memory Loss, Paresthesias, Radicular Pain, Restless Legs, Sensory Deficit, Syncope, Tingling, Tremor, Vertigo, Weakness, Other Visual Disturbances, Other - Psychiatric Psychiatric: absent: As Per HPI, Abnormal Sleep Pattern, Anhedonia, Anxiety, Auditory Hallucinations, Behavioral Changes, Change in Appetite, Change in Libido, Confusion, Depression, Difficulty Concentrating, Hallucinations, Homicidal Ideation, Hopelessness, Irritability, Memory Loss, Mood Swings, Panic Attacks, Paranoia, Suicidal Ideation, Visual Hallucinations, Tactile Hallucinations, Other - Endocrine Endocrine: absent: As Per HPI, Change in Body Appearance, Change in Libido, Cold Intolorance, Deepening of Voice, Excessive Sweating, Fatigue, Flushing, Heat Intolorance, Increase in Ring/Shoe/Hat Size, Palpitations, Polydipsia, Polyphagia, Polyuria, Other - Hematologic/Lymphatic Hematologic: absent: As Per HPI, Easy Bleeding, Easy Bruising, Lymphadenopathy, Other Past Patient History - Infectious Disease Hx of Infectious Diseases: MRSA, VRE - Past Medical History & Family History Past Medical History?: Yes - Past Social History Smoking Status: Never Smoked Chewing Tobacco Use: No Cigar Use: No Alcohol: None Drugs: Denies Home Situation {Lives}: With Family - CARDIAC Hx Hypertension: Yes - PULMONARY Hx Respiratory Disorders: No - NEUROLOGICAL Hx Neurological Disorder: No Hx Syncope: Yes - ENDOCRINE/METABOLIC Hx Diabetes Mellitus Type 2: Yes - HEMATOLOGICAL/ONCOLOGICAL Hx Cancer: Yes (ovarian ca) - MUSCULOSKELETAL/RHEUMATOLOGICAL Hx Falls: Yes - GASTROINTESTINAL Hx Gastrointestinal Disorders: Yes Other/Comment: History of ascites. S/P abdominal paracentesis a fe weeks ago and obtained about 2 L of fluid. - GENITOURINARY/GYNECOLOGICAL Hx Genitourinary Disorders: Yes Hx Ovarian Cancer: Yes Hx Urinary Tract Infection: Yes - PSYCHIATRIC Hx Substance Use: No - SURGICAL HISTORY Hx Surgeries: Yes Hx Cardiac Catheterization: Yes (Non-obstructive CAD, Good LV function) - ANESTHESIA Hx Anesthesia: Yes Hx Anesthesia Reactions: No Hx Malignant Hyperthermia: No Has any member of the family had a problem w/ anesthesia?: No Meds Allergies/Adverse Reactions: Allergies Allergy/AdvReac Type Severity Reaction Status Date / Time No Known Allergies Allergy Unverified 09/05/16 17:50 - Medications Medications: Current Medications Dabigatran (Pradaxa) 75 mg PO BID [facility] Last Admin: 09/07/16 09:22 Dose: 75 mg Diltiazem HCl (Cardizem Cd) 240 mg PO DAILY [facility] Last Admin: 09/07/16 09:22 Dose: 240 mg Dextrose/Sodium Chloride (Dextrose 5%/0.45% Ns 1000 Ml) 1,000 mls @ 40 mls/hr IV .Q24H [facility] Last Admin: 09/06/16 01:22 Dose: 40 mls/hr Vancomycin HCl 500 mg/ Sodium (Chloride) 100 mls @ 100 mls/hr IVPB Q12 [facility] Last Admin: 09/07/16 09:23 Dose: 100 mls/hr Ondansetron HCl (Zofran Tab) 4 mg PO PRN PRN PRN Reason: Nausea/Vomiting Oxycodone/Acetaminophen (Percocet 5/325 Mg Tab) 1 tab PO Q4H PRN PRN Reason: Pain, moderate (4-7) Stop: 09/09/16 01:15 Last Admin: 09/07/16 09:21 Dose: 1 tab Physical Exam - Constitutional Appears: Non-toxic, Confused, Chronically Ill - Head Exam Head Exam: ATRAUMATIC, NORMAL INSPECTION, NORMOCEPHALIC - Eye Exam Eye Exam: PERRL. absent: Scleral icterus - ENT Exam ENT Exam: Mucous Membranes Dry, Normal External Ear Exam, Normal Oropharynx - Neck Exam Neck exam: Negative for: Lymphadenopathy, Thyromegaly - Respiratory Exam Respiratory Exam: Decreased Breath Sounds, Rhonchi - Cardiovascular Exam Cardiovascular Exam: REGULAR RHYTHM, +S1, +S2 - GI/Abdominal Exam GI & Abdominal Exam: Diminished Bowel Sounds, Distended, Soft. absent: Rigid, Tenderness - Rectal Exam Rectal Exam: Deferred - Exam Exam: NORMAL INSPECTION - Extremities Exam Extremities exam: Positive for: pedal edema. Negative for: calf tenderness, tenderness, pedal pulses present - Back Exam Back exam: absent: CVA tenderness (L), CVA tenderness (R), paraspinal tenderness - Neurological Exam Neurological exam: Alert, CN II-XII Intact, Oriented x3, Reflexes Normal - Psychiatric Exam Psychiatric exam: Depressed - Skin Skin Exam: Dry, Intact Results - Vital Signs Recent Vital Signs: Last Vital Signs Temp 97.4 F L 09/07/16 07:00 Pulse 101 H 09/07/16 12:00 Resp 20 09/07/16 07:00 BP 124/68 09/07/16 07:00 Pulse Ox 98 09/07/16 12:00 - Labs Result Diagrams: 09/07/16 06:25 09/07/16 06:25 Labs: Laboratory Results - last 24 hr 09/06/16 09/06/16 09/06/16 17:04 19:28 21:13 WBC RBC Hgb Hct MCV MCH MCHC RDW Plt Count MPV Neut % (Auto) Lymph % (Auto) [place] % (Auto) Eos % (Auto) Baso % (Auto) Neut # Lymph # [place] # Eos # Baso # Neutrophils % (Manual) Lymphocytes % (Manual) Monocytes % (Manual) Platelet Estimate Hypochromasia (manual) Poikilocytosis (manual Anisocytosis (manual) Microcytosis (manual) Macrocytosis (manual) Tear Drop Cells Ovalocytes [place] Cells Sodium Potassium Chloride Carbon Dioxide Anion Gap BUN Creatinine Est GFR ( Amer) Est GFR (Non-Af Amer) POC Glucose (mg/dL) 124 H 133 H Random Glucose Calcium Total Bilirubin AST ALT Alkaline Phosphatase Total Creatine Kinase < 20 L CK-MB (Mass) 2.93 Troponin I, Quant 0.2260 H* NT-Pro-B Natriuret Pep Total Protein Albumin Globulin Albumin/Globulin Ratio 09/07/16 09/07/16 09/07/16 06:25 06:25 06:46 WBC 17.3 H RBC 3.67 L Hgb 10.5 L Hct 33.3 L MCV 90.7 MCH 28.5 MCHC 31.4 L RDW 26.9 H Plt Count 159 MPV 9.9 Neut % (Auto) 91.7 H Lymph % (Auto) 1.9 L [place] % (Auto) 6.1 Eos % (Auto) 0.2 Baso % (Auto) 0.1 Neut # 15.9 H Lymph # 0.3 L [place] # 1.1 H Eos # 0.0 Baso # 0.0 Neutrophils % (Manual) 90 H Lymphocytes % (Manual) 1 L Monocytes % (Manual) 9 Platelet Estimate Normal Hypochromasia (manual) Slight Poikilocytosis (manual Slight Anisocytosis (manual) Slight Microcytosis (manual) Slight Macrocytosis (manual) Slight Tear Drop Cells Slight Ovalocytes Slight [place] Cells Slight Sodium 135 Potassium 3.7 Chloride 103 Carbon Dioxide 26 Anion Gap 10 BUN 47 H Creatinine 1.1 Est GFR ( Amer) 58 Est GFR (Non-Af Amer) 48 POC Glucose (mg/dL) 111 H Random Glucose 112 H Calcium 7.9 L Total Bilirubin 1.0 AST 64 H D ALT 256 H D Alkaline Phosphatase 54 Total Creatine Kinase CK-MB (Mass) Troponin I, Quant NT-Pro-B Natriuret Pep 85845 H Total Protein 4.9 L Albumin 2.1 L D Globulin 2.8 Albumin/Globulin Ratio 0.8 L 09/07/16 12:02 WBC RBC Hgb Hct MCV MCH MCHC RDW Plt Count MPV Neut % (Auto) Lymph % (Auto) [place] % (Auto) Eos % (Auto) Baso % (Auto) Neut # Lymph # [place] # Eos # Baso # Neutrophils % (Manual) Lymphocytes % (Manual) Monocytes % (Manual) Platelet Estimate Hypochromasia (manual) Poikilocytosis (manual Anisocytosis (manual) Microcytosis (manual) Macrocytosis (manual) Tear Drop Cells Ovalocytes [place] Cells Sodium Potassium Chloride Carbon Dioxide Anion Gap BUN Creatinine Est GFR ( Amer) Est GFR (Non-Af Amer) POC Glucose (mg/dL) 109 Random Glucose Calcium Total Bilirubin AST ALT Alkaline Phosphatase Total Creatine Kinase CK-MB (Mass) Troponin I, Quant NT-Pro-B Natriuret Pep Total Protein Albumin Globulin Albumin/Globulin Ratio Assessment & Plan (1) UTI (urinary tract infection) Status: Acute (2) Acute metabolic encephalopathy Status: Acute Priority: High (3) Elevated WBC count Status: Acute Priority: High (4) Rapid atrial fibrillation Status: Acute Priority: High (5) CHF (congestive heart failure) Status: Chronic - Assessment and Plan (Free Text) Assessment: IV VANCO ORDERED
--- NOTE | 2016-09-07 17:07 | CP.PCM.PN ---
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 azotemia improving, Pro BNP elevated Objective - Vital Signs/Intake and Output Vital Signs (last 24 hours): Temp Pulse Resp BP Pulse Ox 97.4 F L 101 H 20 124/68 98 09/07/16 07:00 09/07/16 12:00 09/07/16 07:00 09/07/16 07:00 09/07/16 12:00 Intake and Output: 09/07/16 09/07/16 06:59 18:59 Intake Total 950 Output Total 200 Balance 750 - Medications Medications: Current Medications Dabigatran (Pradaxa) 75 mg PO BID [facility] Last Admin: 09/07/16 09:22 Dose: 75 mg Diltiazem HCl (Cardizem Cd) 240 mg PO DAILY [facility] Last Admin: 09/07/16 09:22 Dose: 240 mg Dextrose/Sodium Chloride (Dextrose 5%/0.45% Ns 1000 Ml) 1,000 mls @ 40 mls/hr IV .Q24H [facility] Last Admin: 09/06/16 01:22 Dose: 40 mls/hr Vancomycin HCl 500 mg/ Sodium (Chloride) 100 mls @ 100 mls/hr IVPB Q12 [facility] Last Admin: 09/07/16 09:23 Dose: 100 mls/hr Ondansetron HCl (Zofran Tab) 4 mg PO PRN PRN PRN Reason: Nausea/Vomiting Oxycodone/Acetaminophen (Percocet 5/325 Mg Tab) 1 tab PO Q4H PRN PRN Reason: Pain, moderate (4-7) Stop: 09/09/16 01:15 Last Admin: 09/07/16 09:21 Dose: 1 tab - Labs Labs: 09/07/16 06:25 09/07/16 06:25 PT 25.7 SECONDS (9.7-12.2) H 09/05/16 20:04 INR 2.2 09/05/16 20:04 APTT 56 SECONDS (21-34) H 09/05/16 20:04 - Constitutional Appears: No Acute Distress - Head Exam Head Exam: NORMAL INSPECTION - Eye Exam Eye Exam: Normal appearance - Neck Exam Neck Exam: Normal Inspection - Respiratory Exam Respiratory Exam: Clear to Ausculation Bilateral, NORMAL BREATHING PATTERN - Cardiovascular Exam Cardiovascular Exam: Tachycardia, Irregular Rhythm, +S1, +S2 - GI/Abdominal Exam GI & Abdominal Exam: Soft, Normal Bowel Sounds - Extremities Exam Extremities Exam: Normal Inspection - Neurological Exam Neurological Exam: Alert, Awake, Oriented x3 - Psychiatric Exam Psychiatric exam: Depressed - Skin Skin Exam: Dry, Intact, Normal Color, Warm Assessment and Plan (1) Rapid atrial fibrillation Assessment & Plan: continues to have intermittent rapid atrial fib on telemetry despite the cardizem. Will try on sotalol for rate control. Continue telemetry. Status: Acute (2) Acute metabolic encephalopathy Assessment & Plan: much better. patient alert and oriented and responding appropriately. Status: Acute (3) Elevated WBC count Assessment & Plan: WBC still elevated but slightly less today. Blood c/s- + staph aureus. Curently on vanco IV. ID java developer consultant on board. Status: Acute (4) Sepsis Assessment & Plan: on IV Vanco as per ID. Status: Acute (5) Acute prerenal azotemia Assessment & Plan: improving with cautious hydration. Status: Acute (6) Ovarian cancer Status: Chronic
[2016-09-08] MEDS: Oxycodone/Acetaminophen 5/325 mg Tab PO PRN ×2 (08:43→18:05)
--- NOTE | 2016-09-08 09:47 | CON ---
DATE: 09/08/2016 This is an 81-year-old woman with ovarian carcinoma. The patient has ovarian carcinoma. She has bee n treated now for the last about 2 years. Originally, she got Taxotere and carboplatin. She develop ed a complete response to the chemotherapy; however, she had a severe allergic reaction to the Taxote re. We then switched her to Gemzar and carboplatin and she did quite well with that as well until re cently when she started developing the ascites once more. We tapped it only about 2 weeks ago for th erapeutic purposes. We are about to start her on a new PARP inhibitor drug that was FDA approved onl y 2 weeks ago and we are in the process of getting that for her in terms of getting clearance from r insurance companies. However, the patient is now admitted to the hospital for severe shortness of breath and she was found to have atrial fibrillation, rapid heartbeat and now was found to have also positive cultures in her urine for which she is taking vancomycin. PHYSICAL EXAMINATION: SKIN: No petechiae, no bruises. HEENT: Anicteric. NODES: None palpable in the axillary, cervical, supraclavicular or inguinal regions. LUNGS: Clear at present. HEART: S1, S2 irregularly irregular. ABDOMEN: Shows ascites, but no tenderness, no omental caking, no liver, no spleen, no tenderness, no rebound. EXTREMITIES: Trace edema. CENTRAL NERVOUS SYSTEM: No focal finding, but the patient is quite weak. This is a combination ____ of her recurrence and progression of the cancer. She has not started any treatment yet and her othe r debilitating processes including atrial fibrillation ____ infection. So at present, there are no plans for chemotherapy until she is stronger enough to be outpatient and could come to the office and we will reconsider starting treatment. For now, she is being treated by the outside sales advertising executive and for the infection. Negrito Frost MD cc: [phone] TT: 09/08/2016 09:46:24 Confirmation # [id number] Dictation # [id number] tn
[2016-09-08] MEDS: Dextrose 5%/0.45% NS 1,000 ML IV SCH (11:58)
--- NOTE | 2016-09-08 12:32 | CON ---
DATE: 09/08/2016 CHIEF COMPLAINT AND REASON FOR CONSULTATION: The patient referred by Dr. Ghazal Busby. The patient ling s been refusing to eat and also getting more confused and feeling depressed. The patient has a histo ry of ovarian cancer. HISTORY OF PRESENT ILLNESS: This is the case an 81-year-old female who lives with her family. The p atient has history of ovarian cancer, hypertension, atrial fibrillation, and diabetes. The patient w as brought in by the family for increasing confusion, disorientation, weakness, poor appetite, and lo w-grade fever. The patient has not been eating for the last few days. The patient was recently grecia liam for UTI. In the Emergency Room, she was noted to have atrial fibrillation, and also WBC noted to be markedly e levated. The patient was admitted for treatment, referred for comanagement. The patient has been no liam to be very weak, confused, and not eating, and complaining of depression. PAST PSYCHIATRIC HISTORY: No prior history. PAST MEDICAL HISTORY: As stated, history of ovarian cancer, has been followed by Dr. Frost, diabetes , hypertension, atrial fibrillation, history of UTI. ALLERGIES: No known allergies. DRUG AND ALCOHOL HISTORY: Denies any, and stated she has no psych history. PSYCHOSOCIAL HISTORY: The patient lives with her family. LIST OF CURRENT MEDICATIONS: Include betapace, Percocet, Pradaxa, vancomycin, and Zofran. LABORATORY DATA: WBC is noted to be elevated at 17.3, the last one. Hemoglobin and hematocrit are 10 .5 and 33.3. CAT scan of the head was done. No acute bleed. Her glucose is 109, the last one. PHYSICAL EXAMINATION: VITAL SIGNS: Temperature is 98.6, pulse rate 75. Blood pressure is 143/68, respirations 18. Oxygen sat is 97%. REVIEW OF SYSTEMS: GENERAL: The patient is very weak, seen and speaks in a weak voice in her room. The patient reports she is feeling depressed. The patient has history of ovarian cancer. She said she has no appetite, feels very weak. SKIN: No diaphoresis. HEENT: No headache or dizziness. NECK: Supple. RESPIRATORY: No dyspnea. CARDIOVASCULAR: No chest pain. GASTROINTESTINAL: The patient is complaining of abdominal pain. The patient has history of recent p aracentesis on the chart. Also no nausea, no vomiting, has poor appetite. EXTREMITIES: The patient moving extremities. NEUROLOGIC: Alert with periods of confusion. GENITOURINARY: No dysuria. MENTAL STATUS EXAMINATION: Elderly female, looks stated age, oriented x [address] and person, but h as periods of confusion. Weight is about 155 pounds. Speech is slow. Affect is restricted. Mood i s dysphoric, depressed. Thought process confused at times. Thought content: The patient states she has no appetite. According to the nurse, the patient did not eat her breakfast this morning. Also, she has problem swallowing her food. No psychosis. No suicidal or homicidal ideation. Attention a nd memory seem to poor. Insight and judgment are limited. Impulse control is fair at this time. IMPRESSION: Metabolic encephalopathy, multifactorial, as well as delirium, as well as possible react airam depression secondary to medical problems. PLAN AND RECOMMENDATION: The patient seen, meds reviewed. Continue present management. The patient is being followed by Dr. Gardner for sepsis, as well as Dr. Frost for her ovarian cancer. We will ad d Remeron 7.5 mg at bedtime for depression. The patient has very poor appetite. Continue treatment plan as outlined. Thank you very much for the consult. Dutch Smith MD cc: [phone] TT: 09/08/2016 12:31:37 Confirmation # [id number] Dictation # [id number] jn
--- NOTE | 2016-09-08 13:52 | CP.PCM.CON ---
History of Present Illness - History of Present Illness History of Present Illness: Palliative consult requested by Kehinde PIZARRO Reason: Goals of care, code status discussion Patient is a 81 yo female admitted from home with AMS. Patient was just recently sent home from [facility] where patient was tteated with IV antbiotics for UTI. Patient was sent home on Cipro and IV hydration. For the last 5 days family noted changes in patient's mental status ; patient was less awake, less oriented and was refusing the food. Upon admission patient was with WBC of 22.0 which dropped to 17.3 today. patient was diagnosed with sepsis and IV antibiotics initiated based on BC results. PMH: Ovarian CA, on chemo Tx, last chemo 2 weeks ago, Doctor Santosh is Onco/Hemo , HTN, DM Soc. Hx: Lives at home with daughter, Fam. Hx: unknown Review of Systems - Review of Systems Systems not reviewed;Unavailable: Altered Mental Status Past Patient History - Infectious Disease Hx of Infectious Diseases: MRSA, VRE - Past Medical History & Family History Past Medical History?: Yes - Past Social History Smoking Status: Never Smoked Chewing Tobacco Use: No Cigar Use: No Alcohol: None Drugs: Denies Home Situation {Lives}: With Family - CARDIAC Hx Cardiac Disorders: Yes Hx Atrial Fibrillation: Yes (paroxysmal) Hx Hypertension: Yes Hx Peripheral Edema: Yes - PULMONARY Hx Respiratory Disorders: No - NEUROLOGICAL Hx Neurological Disorder: No Hx Syncope: Yes - ENDOCRINE/METABOLIC Hx Diabetes Mellitus Type 2: Yes - HEMATOLOGICAL/ONCOLOGICAL Hx Cancer: Yes (ovarian ca) - MUSCULOSKELETAL/RHEUMATOLOGICAL Hx Falls: Yes - GASTROINTESTINAL Hx Gastrointestinal Disorders: Yes Other/Comment: History of ascites. S/P abdominal paracentesis a fe weeks ago and obtained about 2 L of fluid. - GENITOURINARY/GYNECOLOGICAL Hx Genitourinary Disorders: Yes Hx Ovarian Cancer: Yes Hx Urinary Tract Infection: Yes - PSYCHIATRIC Hx Substance Use: No - SURGICAL HISTORY Hx Surgeries: Yes Hx Cardiac Catheterization: Yes (Non-obstructive CAD, Good LV function) - ANESTHESIA Hx Anesthesia: Yes Hx Anesthesia Reactions: No Hx Malignant Hyperthermia: No Has any member of the family had a problem w/ anesthesia?: No Meds Allergies/Adverse Reactions: Allergies Allergy/AdvReac Type Severity Reaction Status Date / Time No Known Allergies Allergy Unverified 09/05/16 17:50 - Medications Medications: Current Medications Dabigatran (Pradaxa) 75 mg PO BID [facility] Last Admin: 09/08/16 09:52 Dose: 75 mg Dextrose/Sodium Chloride (Dextrose 5%/0.45% Ns 1000 Ml) 1,000 mls @ 40 mls/hr IV .Q24H [facility] Last Admin: 09/08/16 11:58 Dose: 40 mls/hr Vancomycin HCl 500 mg/ Sodium (Chloride) 100 mls @ 100 mls/hr IVPB Q12 [facility] Last Admin: 09/08/16 09:52 Dose: 100 mls/hr Mirtazapine (Remeron) 7.5 mg PO HS [facility] Ondansetron HCl (Zofran Tab) 4 mg PO PRN PRN PRN Reason: Nausea/Vomiting Oxycodone/Acetaminophen (Percocet 5/325 Mg Tab) 1 tab PO Q4H PRN PRN Reason: Pain, moderate (4-7) Stop: 09/09/16 01:15 Last Admin: 09/08/16 08:43 Dose: 1 tab Sotalol HCl (Betapace) 80 mg PO BID [facility] Last Admin: 09/08/16 09:52 Dose: 80 mg Physical Exam - Constitutional Appears: No Acute Distress - Head Exam Head Exam: ATRAUMATIC, NORMAL INSPECTION, NORMOCEPHALIC - Eye Exam Eye Exam: Normal appearance, PERRL Pupil Exam: NORMAL ACCOMODATION, PERRL - ENT Exam ENT Exam: Mucous Membranes Moist, Normal Exam - Neck Exam Neck exam: Positive for: Normal Inspection - Respiratory Exam Respiratory Exam: Decreased Breath Sounds, NORMAL BREATHING PATTERN - Cardiovascular Exam Cardiovascular Exam: REGULAR RHYTHM, +S1, +S2 - GI/Abdominal Exam GI & Abdominal Exam: Normal Bowel Sounds, Soft - Rectal Exam Rectal Exam: Deferred - Extremities Exam Extremities exam: Positive for: normal inspection - Back Exam Back exam: NORMAL INSPECTION - Neurological Exam Neurological exam: Alert, Altered - Psychiatric Exam Psychiatric exam: Flat Affect - Skin Skin Exam: Normal Color, Warm Results - Vital Signs Recent Vital Signs: Last Vital Signs Temp 98.6 F 09/08/16 09:13 Pulse 75 09/08/16 10:14 Resp 18 09/08/16 09:13 BP 143/68 09/08/16 09:13 Pulse Ox 97 09/08/16 09:13 - Labs Result Diagrams: 09/07/16 06:25 09/07/16 06:25 Labs: Laboratory Results - last 24 hr 09/07/16 09/07/16 09/08/16 16:37 21:34 06:19 POC Glucose (mg/dL) 134 H 137 H 103 09/08/16 11:33 POC Glucose (mg/dL) 109 Assessment & Plan - Assessment and Plan (Free Text) Assessment: Palliative consult Code status Full Code prior to consult. No advance directive on chart. PPS 10%. ROS unobtainable from patient due to condition. Charts and diagnostic studies reviewed, patient examined in bed, ROS obtained from daughter at bed side. Goals of care discussed with two daughters at bed side. POLST completed. Patient is alert but altered in no acute distress. Patient makes eyes contacts but is not talking. Patient able to fallow simple commends. patient eats when assisted with feedings. BP WNL, afebrile. Family sees improvement in patient's condition. Patient is more alert today and tolerates food. I discussed goals of care with the two daughters at bed side. They both were clear and specific about the end of life care for the patient. As per their statement patient has told them in the past that she would not want to have her life prolonged by " the machines" if meaningful recovery was not expected. I assisted them in signing the POLST calling for DNR/DNI. Family is expecting patient to recover enough to be able to return home to her normal life. Family is aware that patient may need additional time at [facility] for completion of IV Tx and agreed. Impression * Patient is still weak and needs moderate assistance with ADLs * Per family, patient is now more alert than what she was few days ago * The two daughters at bed side are involved in patient's care and fallow patient's wishes for allowing natural * POLS is signed * Current goal is to help patient recover and return home Suggestion * Agree with DNR/DNI * Patient may need central line for the IV Tx * Would plan discharge to [facility] Thank you very much for consulting Palliative care.
--- NOTE | 2016-09-08 16:00 | CP.PCM.PN ---
Subjective - Date & Time of Evaluation Date of Evaluation: 09/08/16 Time of Evaluation: 03:30 - Subjective Subjective: Patient awake, alert and oriented x3, ate a little bit more today remains in atrial fib but rate is much better controlled on Sotalol feeling depressed afebrile, comfortable, no shortness of breath Oncology, Psychiatry and Palliative care consults noted and appreciated Objective - Vital Signs/Intake and Output Vital Signs (last 24 hours): Temp Pulse Resp BP Pulse Ox 98.6 F 75 18 143/68 97 09/08/16 09:13 09/08/16 10:14 09/08/16 09:13 09/08/16 09:13 09/08/16 09:13 Intake and Output: 09/08/16 09/08/16 06:59 18:59 Intake Total 1010 Output Total 100 Balance 910 - Medications Medications: Current Medications Dabigatran (Pradaxa) 75 mg PO BID [facility] Last Admin: 09/08/16 09:52 Dose: 75 mg Dextrose/Sodium Chloride (Dextrose 5%/0.45% Ns 1000 Ml) 1,000 mls @ 40 mls/hr IV .Q24H [facility] Last Admin: 09/08/16 11:58 Dose: 40 mls/hr Vancomycin HCl 500 mg/ Sodium (Chloride) 100 mls @ 100 mls/hr IVPB Q12 [facility] Last Admin: 09/08/16 09:52 Dose: 100 mls/hr Mirtazapine (Remeron) 7.5 mg PO HS [facility] Ondansetron HCl (Zofran Tab) 4 mg PO PRN PRN PRN Reason: Nausea/Vomiting Oxycodone/Acetaminophen (Percocet 5/325 Mg Tab) 1 tab PO Q4H PRN PRN Reason: Pain, moderate (4-7) Stop: 09/09/16 01:15 Last Admin: 09/08/16 08:43 Dose: 1 tab Sotalol HCl (Betapace) 80 mg PO BID [facility] Last Admin: 09/08/16 09:52 Dose: 80 mg - Labs Labs: 09/07/16 06:25 09/07/16 06:25 PT 25.7 SECONDS (9.7-12.2) H 09/05/16 20:04 INR 2.2 09/05/16 20:04 APTT 56 SECONDS (21-34) H 09/05/16 20:04 - Constitutional Appears: No Acute Distress - Head Exam Head Exam: NORMAL INSPECTION - Eye Exam Eye Exam: Normal appearance - ENT Exam ENT Exam: Mucous Membranes Moist - Neck Exam Neck Exam: Normal Inspection - Respiratory Exam Respiratory Exam: Clear to Ausculation Bilateral, NORMAL BREATHING PATTERN - Cardiovascular Exam Cardiovascular Exam: REGULAR RHYTHM, +S1, +S2 - GI/Abdominal Exam GI & Abdominal Exam: Soft, Normal Bowel Sounds - Extremities Exam Extremities Exam: Normal Inspection Assessment and Plan (1) Rapid atrial fibrillation Status: Resolved (2) Acute metabolic encephalopathy Status: Resolved (3) Elevated WBC count Status: Acute (4) Acute prerenal azotemia Status: Resolved (5) Ovarian cancer Status: Chronic (6) Depression Assessment & Plan: Psychiatry consultation requested. Status: Acute
--- NOTE | 2016-09-08 18:34 | CP.PCM.PN ---
Subjective - Date & Time of Evaluation Date of Evaluation: 09/08/16 Time of Evaluation: 08:00 - Subjective Subjective: blood cultures noted could be contaminant but in view of [place] may be a pathogen await recultures still weak and bed bound Objective - Vital Signs/Intake and Output Vital Signs (last 24 hours): Temp Pulse Resp BP Pulse Ox 98.5 F 81 20 169/65 H 97 09/08/16 15:59 09/08/16 15:59 09/08/16 15:59 09/08/16 15:59 09/08/16 15:59 Intake and Output: 09/08/16 09/08/16 06:59 18:59 Intake Total 1010 Output Total 100 Balance 910 - Medications Medications: Current Medications Dabigatran (Pradaxa) 75 mg PO BID [facility] Last Admin: 09/08/16 18:05 Dose: 75 mg Dextrose/Sodium Chloride (Dextrose 5%/0.45% Ns 1000 Ml) 1,000 mls @ 40 mls/hr IV .Q24H [facility] Last Admin: 09/08/16 11:58 Dose: 40 mls/hr Vancomycin HCl 500 mg/ Sodium (Chloride) 100 mls @ 100 mls/hr IVPB Q12 [facility] Last Admin: 09/08/16 09:52 Dose: 100 mls/hr Mirtazapine (Remeron) 7.5 mg PO HS [facility] Ondansetron HCl (Zofran Tab) 4 mg PO PRN PRN PRN Reason: Nausea/Vomiting Oxycodone/Acetaminophen (Percocet 5/325 Mg Tab) 1 tab PO Q4H PRN PRN Reason: Pain, moderate (4-7) Stop: 09/09/16 01:15 Last Admin: 09/08/16 18:05 Dose: 1 tab Sotalol HCl (Betapace) 80 mg PO BID [facility] Last Admin: 09/08/16 18:05 Dose: 80 mg - Labs Labs: 09/07/16 06:25 09/07/16 06:25 PT 25.7 SECONDS (9.7-12.2) H 09/05/16 20:04 INR 2.2 09/05/16 20:04 APTT 56 SECONDS (21-34) H 09/05/16 20:04 - Constitutional Appears: Non-toxic, Cachectic, Chronically Ill - Head Exam Head Exam: NORMOCEPHALIC - Eye Exam Eye Exam: PERRL. absent: Scleral icterus - ENT Exam ENT Exam: Mucous Membranes Dry - Neck Exam Neck Exam: absent: Lymphadenopathy - Respiratory Exam Respiratory Exam: Decreased Breath Sounds - Cardiovascular Exam Cardiovascular Exam: REGULAR RHYTHM - GI/Abdominal Exam GI & Abdominal Exam: Distended, Soft. absent: Tenderness - Rectal Exam Rectal Exam: Deferred - Exam Exam: NORMAL INSPECTION - Extremities Exam Extremities Exam: absent: Pedal Edema - Back Exam Back Exam: absent: CVA tenderness (L), CVA tenderness (R) - Neurological Exam Neurological Exam: Alert, Awake, Oriented x3 - Psychiatric Exam Psychiatric exam: Normal Mood - Skin Skin Exam: Dry Assessment and Plan (1) UTI (urinary tract infection) Status: Acute (2) Acute metabolic encephalopathy Status: Acute (3) Elevated WBC count Status: Acute (4) Rapid atrial fibrillation Status: Acute (5) CHF (congestive heart failure) Status: Chronic
[2016-09-09] MEDS ORDERED: Oxycodone/Acetaminophen 5/325 mg Tab PO PRN (11:19)
[2016-09-09 11:42] LABS: BASO % 0.1 % (0.0-2.0); EOS # 0.1 K/uL (0.0-0.7); EOS % 0.9 % (0.0-4.0); HEMATOCRIT 36.3 % (34.0-47.0); LYMPH # 0.4 K/uL (1.0-4.3); MEAN CELL VOLUME 90.6 fL (81.0-99.0); MEAN CORPUSCULAR HEMOGLOBIN 29.2 pg (27.0-31.0); MEAN CORPUSCULAR HGB CONC 32.2 g/dL (33.0-37.0); MEAN PLATELET VOLUME 9.6 fL (7.2-11.7); MONO # 1.4 K/uL (0.0-0.8); MONO % 9.4 % (0.0-10.0); NRBC % 0.1 % (0.0-2.0); PLATELET COUNT 174 K/uL (130-400); RED CELL DISTRIBUTION WIDTH 26.2 % (11.5-14.5)
[2016-09-09 11:53] LABS: CHLORIDE 105 mmol/L (98-107); POTASSIUM 3.8 mmol/L (3.6-5.2); SODIUM 136 mmol/L (132-148)
[2016-09-09 11:55] LABS: BILIRUBIN,TOTAL 1.4 mg/dL (0.2-1.3); GFR AFRICAN-AMERICAN > 60
[2016-09-09 11:56] LABS: ALB/GLOB RATIO 0.7 (1.0-2.1); ALKALINE PHOSPHATASE 78 U/L (38-126); ALT/SGPT 137 U/L (9-52); AST/SGOT 33 U/L (14-36); BLOOD UREA NITROGEN 24 mg/dL (7-17); CARBON DIOXIDE 26 mmol/L (22-30); GLUCOSE,RANDOM 127 mg/dL (65-105); TOTAL PROTEIN 5.4 g/dL (6.3-8.3)
--- NOTE | 2016-09-09 13:02 | CARD ---
APPROVED REPORT EKG Measurement Heart [id number] <Conclusion> Undetermined rhythm ST & T wave abnormality, consider inferolateral ischemia Abnormal ECG
[2016-09-09 13:06] LABS: NEUTROPHIL 90 % (50-75); TOTAL CELLS COUNTED 100
[2016-09-09 16:02] VITALS: BP 118/75; PULSE 103; RESP 21; TEMP 98.4; O2SAT 99
[2016-09-09] MEDS: Dextrose 5%/0.45% NS 1,000 ML IV SCH (16:44)
--- NOTE | 2016-09-09 16:49 | CP.PCM.DIS ---
Provider - Provider Date of Admission: 09/05/16 22:14 Attending physician: Ghazal Knight MD Primary care physician: Antonia Consults: Melvi Gardner; Mally Pop, Ayala Frost Time Spent in preparation of Discharge (in minutes): 30 Diagnosis - Discharge Diagnosis (1) Rapid atrial fibrillation Status: Resolved Priority: Low (2) Acute metabolic encephalopathy Status: Resolved Priority: High (3) Elevated WBC count Status: Acute Priority: High (4) Acute prerenal azotemia Status: Resolved Priority: High (5) Ovarian cancer Status: Chronic Priority: High (6) Depression Status: Acute Comment: Psychiatry consult noted and appreciated. Patient started on Remeron and advised follow up by psychiatrist at [facility], [place]. Hospital Course - Lab Results Lab Results: Micro Results 09/06/16 11:51 Urine Urine Culture - Final No Growth (<1,000 CFU/ML) Most Recent Lab Values WBC 15.0 K/uL (4.8-10.8) H 09/09/16 11:28 RBC 4.01 Mil/uL (3.80-5.20) 09/09/16 11:28 Hgb 11.7 g/dL (11.0-16.0) 09/09/16 11:28 Hct 36.3 % (34.0-47.0) 09/09/16 11:28 MCV 90.6 fL (81.0-99.0) 09/09/16 11:28 MCH 29.2 pg (27.0-31.0) 09/09/16 11:28 MCHC 32.2 g/dL (33.0-37.0) L 09/09/16 11:28 RDW 26.2 % (11.5-14.5) H 09/09/16 11:28 Plt Count 174 K/uL (130-400) 09/09/16 11:28 MPV 9.6 fL (7.2-11.7) 09/09/16 11:28 Neut % (Auto) 86.6 % (50.0-75.0) H 09/09/16 11:28 Lymph % (Auto) 3.0 % (20.0-40.0) L 09/09/16 11:28 [place] % (Auto) 9.4 % (0.0-10.0) 09/09/16 11:28 Eos % (Auto) 0.9 % (0.0-4.0) 09/09/16 11:28 Baso % (Auto) 0.1 % (0.0-2.0) 09/09/16 11:28 Neut # 13.0 K/uL (1.8-7.0) H 09/09/16 11:28 Lymph # 0.4 K/uL (1.0-4.3) L 09/09/16 11:28 [place] # 1.4 K/uL (0.0-0.8) H 09/09/16 11:28 Eos # 0.1 K/uL (0.0-0.7) 09/09/16 11:28 Baso # 0.0 K/uL (0.0-0.2) 09/09/16 11:28 Neutrophils % (Manual) 90 % (50-75) H 09/09/16 11:28 Band Neutrophils % 2 % (0-2) 09/05/16 18:51 Lymphocytes % (Manual) 2 % (20-40) L 09/09/16 11:28 Monocytes % (Manual) 8 % (0-10) 09/09/16 11:28 Hypersegmented Polys Present 09/05/16 18:51 Smudge Cells Present 09/05/16 18:51 Toxic Granulation Present 09/05/16 18:51 Platelet Estimate Normal (NORMAL) 09/09/16 11:28 Large Platelets Present 09/05/16 18:51 Polychromasia Slight 09/05/16 18:51 Hypochromasia (manual) Slight 09/09/16 11:28 Poikilocytosis (manual Slight 09/09/16 11:28 Anisocytosis (manual) Slight 09/09/16 11:28 Microcytosis (manual) Slight 09/07/16 06:25 Macrocytosis (manual) Slight 09/07/16 06:25 Spherocytes Slight 09/05/16 18:51 Tear Drop Cells Slight 09/09/16 11:28 Ovalocytes Slight 09/09/16 11:28 Jesus Cells Slight 09/07/16 06:25 PT 25.7 SECONDS (9.7-12.2) H 09/05/16 20:04 INR 2.2 09/05/16 20:04 APTT 56 SECONDS (21-34) H 09/05/16 20:04 pO2 31 mm/Hg (30-55) 09/05/16 20:08 VBG pH 7.32 (7.32-7.43) 09/05/16 20:08 VBG pCO2 45 mmHg (40-60) 09/05/16 20:08 VBG HCO3 21.3 mmol/L 09/05/16 20:08 VBG Total CO2 24.6 mmol/L (22-28) 09/05/16 20:08 VBG O2 Sat (Calc) 51.3 % (40-65) 09/05/16 20:08 VBG Base Excess -3.1 mmol/L (0.0-2.0) L 09/05/16 20:08 VBG Potassium 4.7 mmol/L (3.6-5.2) 09/05/16 20:08 Sodium 137.0 mmol/l (132-148) 09/05/16 20:08 Chloride 105.0 mmol/L (98-107) 09/05/16 20:08 Glucose 122 mg/dl (65-105) H 09/05/16 20:08 Lactate 2.1 mmol/L (0.7-2.1) 09/05/16 20:08 Sodium 136 mmol/L (132-148) 09/09/16 11:28 Potassium 3.8 mmol/L (3.6-5.2) 09/09/16 11:28 Chloride 105 mmol/L (98-107) 09/09/16 11:28 Carbon Dioxide 26 mmol/L (22-30) 09/09/16 11:28 Anion Gap 9 (10-20) L 09/09/16 11:28 BUN 24 mg/dL (7-17) H 09/09/16 11:28 Creatinine 0.7 MG/DL (0.7-1.2) 09/09/16 11:28 Est GFR ( Amer) > 60 09/09/16 11:28 Est GFR (Non-Af Amer) > 60 09/09/16 11:28 POC Glucose (mg/dL) 122 mg/dL (65-110) H 09/09/16 16:19 Random Glucose 127 mg/dL (65-105) H 09/09/16 11:28 Hemoglobin A1c 6.6 % (4.2-6.5) H 09/05/16 18:51 Calcium 8.0 mg/dl (8.6-10.4) L 09/09/16 11:28 Total Bilirubin 1.4 mg/dL (0.2-1.3) H 09/09/16 11:28 AST 33 U/L (14-36) 09/09/16 11:28 ALT 137 U/L (9-52) H D 09/09/16 11:28 Alkaline Phosphatase 78 U/L (38-126) 09/09/16 11:28 Total Creatine Kinase < 20 U/L (30-135) L 09/06/16 19:28 CK-MB (Mass) 2.93 ng/mL (0.0-3.38) 09/06/16 19:28 Troponin I 0.1700 ng/mL (0.00-0.120) H* 09/05/16 19:33 Troponin I, Quant 0.2260 ng/mL (0.00-0.120) H* 09/06/16 19:28 NT-Pro-B Natriuret Pep 13014 pg/mL (0-900) H 09/07/16 06:25 Total Protein 5.4 g/dL (6.3-8.3) L 09/09/16 11:28 Albumin 2.3 g/dL (3.5-5.0) L 09/09/16 11:28 Globulin 3.1 gm/dL (2.2-3.9) 09/09/16 11:28 Albumin/Globulin Ratio 0.7 (1.0-2.1) L 09/09/16 11:28 Triglycerides 120 mg/dL (0-149) 09/05/16 19:33 Cholesterol 123 mg/dL (0-199) 09/05/16 19:33 LDL Cholesterol Direct 54 mg/dL (0-129) 09/05/16 19:33 HDL Cholesterol 34 mg/dL (30-70) 09/05/16 19:33 Venous Blood Potassium 4.7 mmol/L (3.6-5.2) 09/05/16 20:08 Urine Color Yellow (YELLOW) 09/05/16 22:00 Urine Clarity Hazy (Clear) 09/05/16 22:00 Urine pH 5.0 (5.0-8.0) 09/05/16 22:00 Ur Specific [place] 1.021 (1.003-1.030) 09/05/16 22:00 Urine Protein Negative mg/dL (NEGATIVE) 09/05/16 22:00 Urine Glucose (UA) Normal mg/dL (Normal) 09/05/16 22:00 Urine Ketones Negative mg/dL (NEGATIVE) 09/05/16 22:00 Urine Blood Negative (NEGATIVE) 09/05/16 22:00 Urine Nitrate Negative (NEGATIVE) 09/05/16 22:00 Urine Bilirubin Negative (NEGATIVE) 09/05/16 22:00 Urine Urobilinogen Normal mg/dL (0.2-1.0) 09/05/16 22:00 Ur Leukocyte Esterase Neg [place]/uL (Negative) 09/05/16 22:00 Urine WBC (Auto) 1 /hpf (0-5) 09/05/16 22:00 Urine RBC (Auto) 1 /hpf (0-3) 09/05/16 22:00 Ur Squamous Epith Cells 1 /hpf (0-5) 09/05/16 22:00 Urine Bacteria Rare (<OCC) 09/05/16 22:00 Vancomycin Trough 12.8 ug/mL (5.0-10.0) H 09/09/16 07:04 - Hospital Course Hospital Course: This is an 81 y/o female with known history of ovaraian CA, paroxysmal atrial fib, hypertensioin and hyperlipidemia who was brought to the ER because of severe weakness, loss of appetite and confusiion and disorientation. She was found jori in atrial fib with rapid ventricular response and markedly dehydrated associated with elevated WBC count and probable UTI. She has had history of UTI in the past and very recently took Cipro for a suspected UTI just prior to this admision. She was given Cardizem drip and IVF. Septic workup was requested that showed Staph aureus coagulase negative which could be a contaminant. However, she was given IV Vanco that seemed to have improved her condition.She became alert and oriented, and WBC started going down. She was given IVF and her creatinine normalized and BUN markedly improved. She was also given Sotalol for her A fib to control her rate which seemed to have helped also. With the improvement in her overall condition, referral was sent to [facility] and she was accepted and hence she will be discharged to the [facility] to be continued on Vancomycin IV for anoter5-7 days. Reculture of blood also requested prior to discharge as per ID recommendation. She will continue with the rest of her oral medications. Discharge Exam - Head Exam Head Exam: NORMOCEPHALIC - Eye Exam Eye Exam: Normal appearance - ENT Exam ENT Exam: Normal Exam - Neck Exam Neck exam: Normal Inspection - Respiratory Exam Respiratory Exam: Clear to PA & Lateral, NORMAL BREATHING PATTERN - Cardiovascular Exam Cardiovascular Exam: Irregular Rhythm, +S1, +S2 - GI/Abdominal Exam GI & Abdominal Exam: Normal Bowel Sounds, Unremarkable - Rectal Exam Rectal Exam: NORMAL INSPECTION - Extremities Exam Extremities exam: normal inspection - Neurological Exam Neurological exam: Alert, Oriented x3 - Psychiatric Exam Psychiatric exam: Depressed Discharge Plan - Follow Up Plan Condition: IMPROVED Disposition: REHAB FACILITY/REHAB UNIT Instructions: Weakness (ED)
--- NOTE | 2016-09-09 18:34 | PN ---
DATE: 09/09/2016 SUBJECTIVE: The patient is seen. The patient is still weak, but more alert and verbal. She states she is eating better. Case discussed with Dr. Ghazal Busby. The patient will be going today to [facility] for subacute rehab. She states she is willing to go, she still feels very weak, but sh e is trying to eat. 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 The patient has history of ascites and ovarian tumor. VITAL SIGNS: Temperature is 98.4, pulse rate is 103, blood pressure is 118/75 respirations 21 and ox ygen sat is 99%. The patient has currently been started with Remeron 7.5 mg at bedtime for depressio n. The patient has history of depression secondary to her medical problems. REVIEW OF SYSTEMS: GENERAL: The patient is weak, but alert and able to converse. She states she is eating better. SKIN: No diaphoresis. HEENT: No headache, no dizziness. NECK: Supple. RESPIRATORY: No dyspnea. CARDIOVASCULAR: No chest pain. GASTROINTESTINAL: Appetite is poor, but eating better. MUSCULOSKELETAL: Generalized weakness. EXTREMITIES: No tremors. NEUROLOGIC: Alert, oriented x 3. MENTAL STATUS EXAMINATION: An elderly female, looks stated age, oriented x 3, feels very weak. Spee ch is soft. Affect is reactive. Mood is depressed. Thought process coherent. Thought content: No psychosis. No suicidal or homicidal ideation. Attention and memory seem to be fair. Insight and j udgment fair. Impulse control is fair. IMPRESSION: Mood disorder secondary to medical problems, history of ovarian cancer, congestive heart failure, as well as history of metabolic encephalopathy. PLAN AND RECOMMENDATIONS: The patient seen, meds reviewed. Continue Remeron 7.5 mg at bedtime for d epression. Continue treatment plan as outlined. The patient will also take antibiotics. The patien t, likewise, is stable to go to [facility], which is also known as [facility] for subacute rehabilitation. I will follow her there as needed. Thank you for the consult again. Dutch Smith MD cc: [phone] TT: 09/09/2016 18:33:51 Confirmation # [id number] Dictation # [id number]
== END 2016-09-09 19:45 | DRG 308 ==
LOC: C.ER 17:45 → C.9E 22:14 → MERGE 22:14 → C.6T 23:32
PROVIDERS: ADMIT Internal Medicine Cardiovascular Disease; ATTEND Internal Medicine Cardiovascular Disease
DX: I48.0 Paroxysmal atrial fibrillation (principal); G93.41 Metabolic encephalopathy; N39.0 Urinary tract infection, site not specified; E11.9 Type 2 diabetes mellitus without complications; F32.9 Major depressive disorder, single episode, unspecified; E78.5 Hyperlipidemia, unspecified; Z85.43 Personal history of malignant neoplasm of ovary